=== PATIENT | male | born 1980 | race American Indian/Alaskan Native ===

== ENCOUNTER 2018-08-08 17:00 | Emergency (ER) | payer OTHER ==
[2018-08-08 17:13] VITALS: BP 139/76
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
[2018-08-08] MEDS ORDERED: MOTRIN PO ONE (21:44)
== END 2018-08-08 23:25 | disposition home or self-care (01) ==
LOC: ED 17:00
DX: M54.2 Cervicalgia (principal); M54.5 Low back pain; F17.200 Nicotine dependence, unspecified, uncomplicated; V43.62XA Car passenger injured in collision with other type car in traffic accident, initial encounter; Y93.89 Activity, other specified; Y92.488 Other paved roadways as the place of occurrence of the external cause; Y99.8 Other external cause status
CPT/HCPCS: 99283